=== PATIENT | male | born 1940 | race Two or more races ===

== ENCOUNTER 2017-06-16 10:21 | Emergency (ER) | payer OTHER ==
[~2017-06-16] VITALS: Ht 172.7 cm; Wt 83.9 kg
[~2017-06-16 10:21] MED LIST: LOTREL 5-10 MG1 CAP
== END 2017-06-16 12:17 | disposition home or self-care (01) ==
LOC: ER 10:21
DX: S60.031A Contusion of right middle finger without damage to nail, initial encounter (principal); W18.09XA Striking against other object with subsequent fall, initial encounter; Y93.89 Activity, other specified; Y92.018 Other place in single-family (private) house as the place of occurrence of the external cause; Y99.8 Other external cause status